=== PATIENT | female | born 1970 | race African-American/Black ===

== ENCOUNTER → 2016-10-24 | Outpatient (CLI) | payer OTHER ==
[~2016-10-24] MED LIST: AMITIZA24 MCG PO; DISCONTINUED MED PO; MORGIDOX100 MG PO; PANTOPRAZOLE SO40 MG PO
--- NOTE | ~2016-10-24 | MY6 ---
[facility] A Service of [facility] RADIOLOGY TEXT RESULTS PATIENT: DIANA PORRAS LOCATION: [facility] : 70 UNIT #: [id number] AGE: [address]: Enma Liu MD SEX: F ORDER DR: [id number] [facility] [address] [place], [place] [address] [id number] O MR#: [id number] Acc #: [id number] NAME: DIANA PORRAS : 1970 SEX: F STUDY DATE/TIME: 10/24/2016 9:10 UNIT: [facility] ROOM: STUDY DESCRIPTION: MY Mammogram Dx Dig Jna Attending Physician: Enma Liu M.D. Referring Physician: Enma Liu M.D. Ordering Physician: Enma Liu M.D. Primary Care Physician: Enma Liu M.D. MEDICAL IMAGING REPORT This report is preliminary unless electronic signature is present EXAM Bilateral digital diagnostic mammogram and targeted right breast ultrasound, 10/24/2016. INDICATION 46-year-old female who reports that her doctor felt an abnormality in the outer aspect of the right breast on recent physical exam. The patient denies any palpable abnormality today but does complain of intermittent pain with palpation in the outer aspect of the right breast. No personal history of breast cancer. Family history positive in a aunt and a grandmother. No surgeries. TECHNIQUE CC, MLO, and true lateral views were obtained on the right. Standard screening views were obtained on the left. Following the mammogram portion of the study targeted ultrasound of the right breast was also performed. COMPARISON STUDIES 01/12/2015, 08/01/2013. FINDINGS MAMMOGRAPHIC FINDINGS: Breast parenchyma is composed of scattered fibroglandular densities. The pattern is unchanged. There is no new dominant nodule, mass, or suspicious cluster of microcalcifications. Benign calcifications are present. There is no mammographic correlate for the area of reported concern in the outer hemisphere right breast. Targeted ultrasound was thereafter performed. ULTRASOUND FINDINGS: Right breast: The patient was initially scanned independently by the technologist and then rescanned in my presence. Limited physical exam (with patient consent) was also performed and was negative. Imaging of [facility]. [facility] A Service of [facility] RADIOLOGY TEXT RESULTS PATIENT: DIANA PORRAS LOCATION: [facility] : 70 UNIT #: [id number] AGE: [address]: Enma Liu MD SEX: F ORDER DR: the area of reported palpable concern spans the 7 o'clock through 10 o'clock positions and is negative, demonstrating heterogeneously dense breast tissue but no cystic or solid mass or persistent shadowing abnormality. Imaging findings between modalities are concordant. Clinical considerations should determine additional imaging at this time. Findings and recommendations were discussed with the patient. Return to an annual screening regimen is recommended. IMPRESSION Negative bilateral diagnostic mammogram and targeted right breast ultrasound. Clinical considerations to determine additional imaging at this time. Return to an annual screening regimen is recommended. See discussion above. Patients over the age of 40 are entered into a reminder system with target due date for the next mammogram. A result letter will also be sent to the patient. BIRADS: 2 Benign finding. Dictated by... Zak Tamayo M.D. THIS IS AN ELECTRONICALLY VERIFIED REPORT Zak Tamayo M.D. at 10/24/2016 5:24 PM KAITLYN/ji TD: 10/24/2016 10:17 JOB #: [id number] MEDICAL IMAGING REPORT Page 1 of 1 COPY
--- NOTE | ~2016-10-24 | US24 ---
[facility] A Service of [facility] & [facility] RADIOLOGY TEXT RESULTS PATIENT: DIANA PORRAS LOCATION: [facility] : 70 UNIT #: [id number] AGE: [address]: Enma Liu MD SEX: F ORDER DR: [id number] [facility] [address] [place], [place] [address] [id number] O MR#: [id number] Acc #: [id number] NAME: DIANA PORRAS : 1970 SEX: F STUDY DATE/TIME: 10/24/2016 9:44 UNIT: [facility] ROOM: STUDY DESCRIPTION: US Breast Unilateral Attending Physician: Enma Liu M.D. Referring Physician: Enma Liu M.D. Ordering Physician: Enma Liu M.D. Primary Care Physician: Enma Liu M.D. MEDICAL IMAGING REPORT This report is preliminary unless electronic signature is present EXAM Targeted ultrasound of the right breast 10/24/16 HISTORY Correlation with diagnostic mammogram same date. Please see the report from the diagnostic mammogram for this patient same date. BIRADS: 2 - benign findings Dictated by... Zak Tamayo M.D. THIS IS AN ELECTRONICALLY VERIFIED REPORT Zak Tamayo M.D. at 10/24/2016 5:24 PM Mike TD: 10/24/2016 10:22 JOB #: [id number] MEDICAL IMAGING REPORT Page 1 of 1 COPY
== END | disposition home or self-care (01) ==
LOC: CMAM 08:55
DX: N64.4 Mastodynia (principal); N64.9 Disorder of breast, unspecified
CPT/HCPCS: 76641; G0204

== ENCOUNTER → 2016-12-25 | Outpatient (CLI) | payer OTHER ==
--- NOTE | ~2016-12-25 | CR151 ---
[facility] A Service of [facility] RADIOLOGY TEXT RESULTS PATIENT: DIANA PORRAS LOCATION: [facility] : 70 UNIT #: [id number] AGE: [address]: Lynn Chamberlain APRN SEX: F ORDER DR: [id number] [facility] [address] [place], [place] [address] [id number] O MR#: [id number] Acc #: [id number] NAME: DIANA PORRAS : 1970 SEX: F STUDY DATE/TIME: 12/25/2016 17:23 UNIT: [facility] ROOM: STUDY DESCRIPTION: CR Hip Min 2 Views Rt Attending Physician: Lynn Chamberlain Aprn Referring Physician: Lynn Chamberlain Aprn Ordering Physician: Lynn Chamberlain Aprn Primary Care Physician: Enma Liu M.D. MEDICAL IMAGING REPORT This report is preliminary unless electronic signature is present EXAM Right hip 2 views 12/25/2016 HISTORY Right hip pain, chronic pain for 1 month. No known injury. FINDINGS AP and oblique examination of the hip shows adequate mineralization of the bones and a normal anatomic relationship of the femoral head with the acetabulum. There are no hypertrophic changes, fractures, dislocation, or joint capsular distension. No radiopaque foreign body is present about the soft tissues of the hip. IMPRESSION Normal hip. Dictated by... Fabio Holt M.D. THIS IS AN ELECTRONICALLY VERIFIED REPORT Fabio Holt M.D. at 12/27/2016 6:18 AM KRT/to TD: 12/26/2016 13:45 JOB #: [id number] MEDICAL IMAGING REPORT Page 1 of 1 COPY
--- NOTE | ~2016-12-25 | CR150 ---
[facility] A Service of [facility] & [facility] RADIOLOGY TEXT RESULTS PATIENT: DIANA PORRAS LOCATION: [facility] : 70 UNIT #: [id number] AGE: [address]: Lynn Chamberlain APRN SEX: F ORDER DR: [id number] [facility] [address] [place], [place] [address] [id number] O MR#: [id number] Acc #: [id number] NAME: DIANA PORRAS : 1970 SEX: F STUDY DATE/TIME: 12/25/2016 17:21 UNIT: [facility] ROOM: STUDY DESCRIPTION: CR Hip Min 2 Views Lt Attending Physician: Lynn Chamberlain Aprn Referring Physician: Lynn Chamberlain Aprn Ordering Physician: Lynn Chamberlain Aprn Primary Care Physician: Enma Liu M.D. MEDICAL IMAGING REPORT This report is preliminary unless electronic signature is present EXAM Left hip 2 views 12/25/2016 HISTORY Left hip pain for 1 month. No known injury. FINDINGS AP and oblique examination of the hip shows adequate mineralization of the bones and a normal anatomic relationship of the femoral head with the acetabulum. There are no hypertrophic changes, fractures, dislocation, or joint capsular distension. No radiopaque foreign body is present about the soft tissues of the hip. IMPRESSION Normal hip. Dictated by... Fabio Holt M.D. THIS IS AN ELECTRONICALLY VERIFIED REPORT Fabio Holt M.D. at 12/27/2016 6:18 AM KRT/bekah TD: 12/26/2016 13:40 JOB #: [id number] MEDICAL IMAGING REPORT Page 1 of 1 COPY
== END | disposition home or self-care (01) ==
LOC: CRAD 16:40
DX: M25.551 Pain in right hip (principal); M25.552 Pain in left hip; G89.29 Other chronic pain
CPT/HCPCS: 73502

== ENCOUNTER → 2016-12-25 | Outpatient (CLI) | payer OTHER ==
--- NOTE | ~2016-12-25 | CR58 ---
[facility] A Service of [facility] RADIOLOGY TEXT RESULTS PATIENT: DIANA PORRAS LOCATION: [facility] : 70 UNIT #: [id number] AGE: [address]: Enma Liu MD SEX: F ORDER DR: [id number] [facility] [address] [place], [place] [address] [id number] O MR#: [id number] Acc #: [id number] NAME: DIANA PORRAS : 1970 SEX: F STUDY DATE/TIME: 12/25/2016 17:04 UNIT: [facility] ROOM: STUDY DESCRIPTION: CR Cervical Spine 2 or 3 Views Attending Physician: Enma Liu M.D. Referring Physician: Enma Liu M.D. Ordering Physician: Enma Liu M.D. Primary Care Physician: Enma Liu M.D. MEDICAL IMAGING REPORT This report is preliminary unless electronic signature is present EXAM Cervical spine 5 views 12/25/2016 HISTORY Neck pain for 1 month. No known injury. FINDINGS 5 views of the cervical spine demonstrate no fracture. There is degenerative change with mild disc space narrowing at C6-C7 with anterior and posterior osteophytes at C5 and C6. There is no retropharyngeal soft tissue swelling. IMPRESSION Minimal degenerative change in the cervical spine. No acute abnormality. Dictated by... Fabio Holt M.D. THIS IS AN ELECTRONICALLY VERIFIED REPORT Fabio Holt M.D. at 12/27/2016 6:18 AM KRT/bekah TD: 12/26/2016 13:36 JOB #: [id number] MEDICAL IMAGING REPORT Page 1 of 1 COPY
--- NOTE | ~2016-12-25 | CR181 ---
[facility] A Service of [facility] RADIOLOGY TEXT RESULTS PATIENT: DIANA PORRAS LOCATION: [facility] : 70 UNIT #: [id number] AGE: [address]: Enma Liu MD SEX: F ORDER DR: [id number] [facility] [address] [place], [place] [address] [id number] O MR#: [id number] Acc #: [id number] NAME: DIANA PORRAS : 1970 SEX: F STUDY DATE/TIME: 12/25/2016 17:06 UNIT: [facility] ROOM: STUDY DESCRIPTION: CR Lumbar Spine 2 or 3 Views Attending Physician: Enma Liu M.D. Referring Physician: Enma Liu M.D. Ordering Physician: Enma Liu M.D. Primary Care Physician: Enma Liu M.D. MEDICAL IMAGING REPORT This report is preliminary unless electronic signature is present EXAM Lumbar spine 3 views 12/25/2016 HISTORY Low back pain for 1 month. No known injury. FINDINGS 3 views of the lumbar spine demonstrate no fracture. The posterior vertebral body line is intact and there is no anterolisthesis or retrolisthesis. The disc spaces are normally maintained. Small anterior osteophytes are seen from L1 through L4. There is degenerative change involving the articular facets. IMPRESSION Minimal degenerative change in the lumbar spine. No acute abnormality. Dictated by... Fabio Holt M.D. THIS IS AN ELECTRONICALLY VERIFIED REPORT Fabio Holt M.D. at 12/27/2016 6:18 AM KRT/pcl TD: 12/26/2016 13:37 JOB #: [id number] MEDICAL IMAGING REPORT Page 1 of 1 COPY
== END | disposition home or self-care (01) ==
LOC: CRAD 16:30
DX: M54.5 Low back pain (principal); M54.6 Pain in thoracic spine; M47.892 Other spondylosis, cervical region; M47.896 Other spondylosis, lumbar region
CPT/HCPCS: 72040; 72100

== ENCOUNTER → 2017-01-01 | Outpatient (CLI) | payer OTHER ==
--- NOTE | ~2017-01-01 | US6 ---
[facility] A Service of [facility] & [facility] RADIOLOGY TEXT RESULTS PATIENT: DIANA PORRAS LOCATION: [facility] : 70 UNIT #: [id number] AGE: [address]: LINETTE MARTINEZ SEX: F ORDER DR: [id number] [facility] [address] [place], [place] [address] [id number] O MR#: [id number] Acc #: [id number] NAME: DIANA PORRAS : 1970 SEX: F STUDY DATE/TIME: 01/01/2017 7:13 UNIT: [facility] ROOM: STUDY DESCRIPTION: US Abdominal Limited Attending Physician: Rickey Cox Referring Physician: Rickey Cox Ordering Physician: Rickey Cox Primary Care Physician: Enma Liu M.D. MEDICAL IMAGING REPORT This report is preliminary unless electronic signature is present EXAM Right upper quadrant ultrasound 01/01/2017. HISTORY Right upper quadrant abdominal pain for 5 months. FINDINGS The liver is homogeneous in echotexture and demonstrates no cystic or solid mass lesions. The intra and extrahepatic bile ducts are not dilated. The gallbladder is contracted but demonstrates no evidence of cholelithiasis, wall thickening or pericholecystic fluid. The common duct measures 4 mm. The pancreas and right kidney are normal. IMPRESSION Contracted gallbladder. Otherwise negative right upper quadrant ultrasound. Dictated by... Fabio Holt M.D. THIS IS AN ELECTRONICALLY VERIFIED REPORT Fabio Holt M.D. at 01/02/2017 2:10 PM KRT/mil TD: 01/01/2017 14:11 JOB #: [id number] MEDICAL IMAGING REPORT Page 1 of 1 COPY
== END | disposition home or self-care (01) ==
LOC: CGUS 06:47
DX: R10.9 Unspecified abdominal pain (principal); G89.29 Other chronic pain; K82.0 Obstruction of gallbladder
CPT/HCPCS: 76705

== ENCOUNTER → 2017-01-06 | Outpatient (CLI) | payer OTHER ==
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
== END | disposition home or self-care (01) ==
LOC: CMRI 09:07
DX: G89.29 Other chronic pain (principal); M50.122 Cervical disc disorder at C5-C6 level with radiculopathy; M47.892 Other spondylosis, cervical region; M99.81 Other biomechanical lesions of cervical region; M48.02 Spinal stenosis, cervical region
CPT/HCPCS: 72141

== ENCOUNTER 2017-02-24 04:49 | Emergency (ER) | payer OTHER ==
--- NOTE | ~2017-02-24 | CR63 ---
[facility] A Service of [facility] & [facility] RADIOLOGY TEXT RESULTS PATIENT: DIANA PORRAS LOCATION: [facility] : 70 UNIT #: [id number] AGE: [address]: Bill Ambrose MD SEX: F ORDER DR: [id number] [facility] [address] [place], [place] [address] [id number] E MR#: [id number] Acc #: [id number] NAME: DIANA PORRAS. : 1970 SEX: F STUDY DATE/TIME: 02/24/2017 5:55 UNIT: [facility] ROOM: STUDY DESCRIPTION: CR Chest 2 View Attending Physician: Bill Ambrose M.D. Ordering Physician: Ayad Contreras M.D. Primary Care Physician: Enma Liu M.D. MEDICAL IMAGING REPORT This report is preliminary unless electronic signature is present EXAM Chest, PA and lateral; 02/24/2017. HISTORY Cough. Throat pain and generalized weakness beginning today. FINDINGS PA and lateral examination of the chest upright shows a good expansion of the parenchyma with a normal distribution of the pulmonary vascularity. There is no indication of congestion, effusion, infiltrate, tumor, or nodular density. The pleural reflections and diaphragmatic contours are normal. The cardiac silhouette and mediastinal anatomy is within normal limits. IMPRESSION Normal PA and lateral chest. Dictated by... Fabio Holt M.D. THIS IS AN ELECTRONICALLY VERIFIED REPORT Fabio Holt M.D. at 02/25/2017 6:31 AM ABDON/danika TD: 02/24/2017 21:29 JOB #: [id number] MEDICAL IMAGING REPORT Page 1 of 1 COPY
--- NOTE | ~2017-02-24 | EKG ---
PATIENT: DIANA PORRAS UNIT #: [id number] Ventricular Rate: 74 BPM Atrial Rate: 74 BPM P-R Interval: 144 ms QRS Duration: 92 ms Q-T Interval: 412 ms QTC Calculation(Bezet): 457 ms P [place]: 79 degrees Calculated R [place]: -50 degrees Calculated T [place]: 51 degrees Diagnosis Line: Normal sinus rhythm Diagnosis Line: Left axis deviation Diagnosis Line: Left anterior fascicular block Diagnosis Line: RSR' or QR pattern in V1 suggests right Diagnosis Line: ventricular conduction delay Diagnosis Line: Abnormal ECG Diagnosis Line: When compared with ECG of 02-MAY-2013 10:55, Diagnosis Line: No significant change was found Diagnosis Line: Confirmed by MARIELA BAGLEY MD ([id number]) on Diagnosis Line: 02/25/2017 4:58:54 PM INTERPRETING MD: TARAN
[2017-02-24 06:07] LABS: POC - CKMB <1.0 ng/mL (0.0-7.9); POC - TROPONIN <0.05 ng/mL (<=0.05)
[2017-02-24 06:31] LABS: BASOPHIL% 0.6 % (0-2.5); EOSINOPHIL# 0.2 X10e3 (0-0.7); EOSINOPHIL% 3.4 % (0.0-7.0); HEMATOCRIT 39.7 % (35.0-45.0); HEMOGLOBIN 13.4 gm/dL (12.0-16.0); LYMPHOCYTE# 2.4 X10e3 (1.0-3.5); LYMPHOCYTE% 47.8 % (17.0-45.0); MEAN CELL VOLUME 94.1 FL (83-96); MEAN CORPUSCULAR HEMOGLOBIN 31.7 PG (28-34); MEAN CORPUSCULAR HGB CONC 33.6 g/dL (30-36); MEAN PLATELET VOLUME 7.1 FL (6.5-11.5); MONOCYTE# 0.4 X10e3 (0-1.0); MONOCYTE% 7.3 % (3.0-12.0); NEUTROPHIL% 40.9 % (40-75); PLATELET COUNT 332 X10e3 (140-420); RED BLOOD COUNT 4.22 X10e (3.90-5.30); RED CELL DISTRIBUTION WIDTH 13.8 % (11.0-15.5)
[2017-02-24 06:33] LABS: DIFF IND NO
[2017-02-24 07:10] LABS: AMPHETAMINE NEG (NEG); BARBITURATES NEG (NEG); BENZODIAZEPINES NEG (NEG); COCAINE POS (NEG); MARIJUANA POS (NEG); OPIATES NEG (NEG); TRICYCLIC ANTIDEPRESSANTS NEG (NEG); U METHADONE NEG (NEG)
[2017-02-24 07:11] LABS: BUN/CREATININE RATIO 8.75; CREATININE SERUM 0.8 mg/dL (0.6-1.4); GLOM FILT RATE Estimated 102.6 mL/min (>60); POTASSIUM 3.5 mmol/L (3.5-5.1)
== END 2017-02-24 11:15 | disposition home or self-care (01) ==
LOC: CED 04:49
PROVIDERS: Emergency Medicine
DX: F10.129 Alcohol abuse with intoxication, unspecified (principal); F14.10 Cocaine abuse, uncomplicated; R07.0 Pain in throat; Z88.8 Allergy status to other drugs, medicaments and biological substances
CPT/HCPCS: 36415; 71020; 80048; 80307; 82553; 84484; 85025; 87651; 93005; 99285; G0480